=== PATIENT | female | born 1990 | race Caucasian/White ===

== ENCOUNTER 2022-10-28 09:43 | Inpatient (IN) ==
[2022-10-28] MEDS ORDERED: Lactated Ringers 1000 ml BAG 1,000 ML IV ONE (10:42)
[2022-10-28] MEDS ORDERED: Buffered Lidocaine 1% SYRIN 1 ml INTRADERM ONE (10:42)
[2022-10-28] MEDS ORDERED: Promethazine INJ(RESTRICTED) 25 MG/ML 1 ml VIAL IV PRN (10:42)
[2022-10-28] MEDS ORDERED: Nalbuphine 10 MG/ML 1 ML VIAL IV PRN (10:42)
[2022-10-28] MEDS ORDERED: Lactated Ringers 1000 ml BAG 1,000 ML IV SCH ×2 (11:00→23:00)
[2022-10-28] MEDS ORDERED: miSOPROStol 100 mcg TAB PO ONE ×3 (11:00→16:56)
[2022-10-28] MEDS ORDERED: Calcium Carb (TUMS) 500 mg CHEW TAB PO PRN (11:02)
[2022-10-28 11:37] LABS: ABS Eosinophils 0.1 10^3/uL (0.0-0.5); ABS Lymphocytes 2.7 10^3/uL (1.0-4.8); ABS Monocytes 0.7 10^3/uL (0.0-0.9); ABS Neutrophils 10.5 10^3/uL (1.5-7.6); ABS Nucleated RBC 0.01 10^3/ul; Eosinophil % 0.4 %; Hematocrit 28.6 % (35-45); Lymphocyte % 19.1 %; Mean Corpuscular Hemoglobin 30.7 pg (27-33); Mean Corpuscular Hgb Conc 34.9 g/dL (31-36); Mean Platelet Volume 6.9 fL (7.5-11.2); Platelet Count 398 10^3/uL (150-450); Red Blood Count 3.25 10^6/uL (3.63-4.92); Red Cell Distribution Width 16.4 % (12-17); White Blood Count 13.9 10^3/uL (3.8-11.8)
[2022-10-28 12:04] LABS: Urine Benzodiazepine Screen None Detected (None Detect); Urine Cannabinoids Screen None Detected (None Detect); Urine Opiates Screen None Detected (None Detect)
[2022-10-28] MEDS: Nicotine PATCH 14 MG/24 HR PATCH TRANSDERM SCH (13:22)
[2022-10-28] MEDS ORDERED: Oxytocin in LR 20,000 MILLI.UNIT/1,000 ML BAG IV SCH (19:45)
[2022-10-28] MEDS ORDERED: Ondansetron 4 mg VIAL 2 MG/ML 2 ml VIAL IV PRN (20:21)
[2022-10-28] MEDS ORDERED: fentaNYL 100 mcg/2 ml 50 MCG/ML VIAL IV SLOW PU PRN (20:22)
[2022-10-28] MEDS ORDERED: Glycerin ADULT 2.4 gm SUPP PR PRN (22:27)
[2022-10-29] MEDS: Dibucaine 1% OINT 28.35 GM TUBE PR PRN (00:09)
[2022-10-29] MEDS: Witch Hazel PAD JAR TOPICAL PRN (00:09)
[2022-10-29 07:18] LABS: ABS Eosinophils 0.1 10^3/uL (0.0-0.5); ABS Lymphocytes 3.3 10^3/uL (1.0-4.8); ABS Monocytes 0.6 10^3/uL (0.0-0.9); ABS Neutrophils 11.7 10^3/uL (1.5-7.6); Eosinophil % 0.6 %; Hematocrit 25.2 % (35-45); Hemoglobin 8.9 g/dL (11.5-14.3); Lymphocyte % 20.8 %; Mean Corpuscular Hemoglobin 31.2 pg (27-33); Mean Corpuscular Hgb Conc 35.4 g/dL (31-36); Mean Platelet Volume 6.9 fL (7.5-11.2); Platelet Count 355 10^3/uL (150-450); Red Blood Count 2.87 10^6/uL (3.63-4.92); Red Cell Distribution Width 16.2 % (12-17); White Blood Count 15.6 10^3/uL (3.8-11.8)
[2022-10-29] MEDS: Nicotine PATCH 14 MG/24 HR PATCH TRANSDERM SCH (08:16)
[2022-10-30] MEDS: Witch Hazel PAD JAR TOPICAL PRN (01:06)
[2022-10-30] MEDS: Dibucaine 1% OINT 28.35 GM TUBE PR PRN (01:06)
[2022-10-30 08:33] VITALS: BP 112/75
[2022-10-30] MEDS: Nicotine PATCH 14 MG/24 HR PATCH TRANSDERM SCH (09:00)
== END 2022-10-30 18:00 | disposition home or self-care (01) | DRG 560 ==
LOC: MCHOBOUT 09:43 → MCHOB 10:14
PROVIDERS: ADMIT Advanced Practice Midwife; ATTEND Advanced Practice Midwife